=== PATIENT | female | born 1950 | race Caucasian/White ===

== ENCOUNTER 2024-08-28 04:57 | Emergency (ER) | payer OTHER ==
[2024-08-28] MEDS ORDERED: Ipratropium/Albuterol 3 ML NEB ONE (05:01)
[2024-08-28] MEDS ORDERED: Albuterol 2.5 MG (0.5 mL) NEB ONE (05:01)
[2024-08-28] MEDS ORDERED: Furosemide 20 MG (2 mL) VIAL ONE ×2 (05:05→06:22)
[2024-08-28 05:37] LABS: Band 2 % (5-11); Hematocrit 42.9 % (36.0-47.0); Hemoglobin 13.5 g/dL (12.0-16.0); Lymphocytes 11 % (21-51); MDiff Complete? YES; Mean Corpuscular HGB CONC 31.4 g/dL (32.0-36.0); Mean Corpuscular Hemoglobin 29.7 pg (27.0-31.0); Mean Corpuscular Volume 94.7 fl (78.0-98.0); Mean Platelet Volume 7.4 fL (7.4-10.4); Monocytes 4 % (0-10); Neutrophil 83 % (42-75); Platelet Count 295 10x3/uL (130-400); RBC Distribution Width 13.8 % (11.5-14.5); Red Blood Cell (RBC) Count 4.54 mill/uL (4.20-5.40); White Blood Cell (WBC) Count 14.1 10x3/uL (4.8-10.8)
[2024-08-28 05:43] LABS: ALT (SGPT) 44 U/L (8-55); AST (SGOT) 56 U/L (5-34); Albumin 3.9 g/dL (3.4-4.8); Alkaline Phosphatase 64 U/L (40-110); Anion Gap 24 mmol/L (10-20); BUN (Urea Nitrogen) 17 mg/dL (9.8-20.1); Bilirubin, Total 1.1 mg/dL (0.2-1.2); Calc. Creatinine Clearance 0 mL/min (70-130); Calcium 9.1 mg/dL (7.8-10.44); Carbon Dioxide 15 mmol/L (23-31); Chloride 104 mmol/L (98-107); Estimated GFR 38; Magnesium 1.8 mg/dL (1.6-2.6); Potassium 4.8 mmol/L (3.5-5.1); Protein, Total 7.9 g/dL (5.8-8.1); Sodium 138 mmol/L (136-145)
[2024-08-28 05:46] LABS: Troponin I 1.067 ng/mL (< 0.028)
[2024-08-28 05:47] LABS: Critical Call Chem Troponin I NUR.BRS@0545
[2024-08-28 05:49] LABS: Glucose 519 mg/dL (83-110)
[2024-08-28 06:16] LABS: Bilirubin Negative (Negative); Blood, Urine Trace (Negative); Clarity Cloudy (Clear); Glucose, Urine (Dipstick) 500 mg/dL (Negative); Ketone, Urine 15 mg/dL (Negative); Leukocyte Negative (Negative); Nitrite Negative (Negative); Protein, Urine (Dipstick) > or equal to 300 mg/dL (Neg-Trace); Urobilinogen 0.2 mg/dL (Less than 2); pH, Urine 5.5 (5.0-9.0)
[2024-08-28 06:18] LABS: Specific Gravity, Urine 1.028 (1.002-1.036)
[2024-08-28] MEDS ORDERED: Doxycycline 100 MG VIAL ONE (06:22)
[2024-08-28] MEDS ORDERED: Morphine 2 MG/ML VIAL ONE (06:22)
[2024-08-28 06:24] LABS: CAUTI Indications for Culture Alt mental st,lethar; RBC/HPF 0-3 HPF (0-3); Squamous Epithelial 0-3 HPF (0-3)
[2024-08-28 06:28] LABS: Urine Culture Reflex Yes Yes
[2024-08-28 06:39] LABS: Critical Call Chem-Lactate RN CASSY @0635
== END 2024-08-28 06:58 | disposition short-term general hospital (02) ==
LOC: MADERS 04:57
DX: A41.9 Sepsis, unspecified organism (principal); J96.01 Acute respiratory failure with hypoxia; R79.89 Other specified abnormal findings of blood chemistry; J15.9 Unspecified bacterial pneumonia; J81.1 Chronic pulmonary edema
CPT/HCPCS: 51702; 71045; 80053; 81001; 83605; 83735; 83880; 84145; 84484; 85025; 87040; 87077; 87086; 87186; 87428; 93005; 94660; 94760; 96365; 96375; 96376; J1940; J2272; J7611; J7620